=== PATIENT | male | born 1980 ===

== ENCOUNTER 2018-04-22 12:46 | Emergency (ER) | payer OTHER ==
[2018-04-22 12:57] VITALS: BP 148/101
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
[2018-04-23 22:49] LABS: HSV 1 PCR Negative (Negative); Herpes Source PENIS
--- NOTE | 2018-04-24 09:12 | ED ---
Progress - Progress Note Progress Note: Labs reviewed today: HIV and HSV testing negative No change Course/Dx - Diagnoses Provider Diagnoses: Scabies, Concern about STD in male without diagnosis Discharge - Sign-Out/Discharge Documenting (check all that apply): Patient Departure All imaging exams completed and their final reports reviewed: No Studies - Discharge Plan Condition: Stable Disposition: HOME Prescriptions: hydrOXYzine HCL TAB* [Atarax TAB*] 25 mg PO DAILY #14 tab Permethrin [Elimite] 60 gm TP WEEKLY #1 cream..g. Patient Education Materials: Scabies (ED) Referrals: No Primary Care Phys,NOPCP [Primary Care Provider] - Additional Instructions: STD tests pending - Billing Disposition and Condition Condition: STABLE Disposition: Home
[2018-04-25 13:54] LABS: Neisseria gonorrhoeae (GC) RNA Negative (Negative)
== END 2018-04-22 14:38 | disposition home or self-care (01) ==
LOC: UCEAST 12:46
DX: B86 Scabies (principal); Z11.3 Encounter for screening for infections with a predominantly sexual mode of transmission
CPT/HCPCS: 36415; 86703; 87491; 87529; 87591; 99202; G0463